=== PATIENT | male | born 1955 | race Caucasian/White ===

== ENCOUNTER 2020-09-29 13:06 | Outpatient (CLI) | payer BC | END 2020-09-29 13:07 | disposition home or self-care (01) | LOC: BICULT 13:06 | PROVIDERS: ATTEND Family Medicine | DX: M54.9 Dorsalgia, unspecified (principal) | CPT/HCPCS: 76770 ==

== ENCOUNTER 2021-11-25 16:49 | Emergency (ER) | payer BC ==
[2021-11-25] MEDS ORDERED: Boostrix 0.5 ML (Tdap) VIAL ONE (17:47)
[2021-11-25] MEDS ORDERED: Ketorolac Tromethamine 30 MG/ML VIAL ONE (18:52)
== END 2021-11-25 18:51 | disposition home or self-care (01) ==
LOC: ERS 16:49
DX: S70.02XA Contusion of left hip, initial encounter (principal); S40.812A Abrasion of left upper arm, initial encounter; I10 Essential (primary) hypertension; W19.XXXA Unspecified fall, initial encounter
CPT/HCPCS: 90471; 90715; J1885